=== PATIENT | female | born 1970 | race African-American/Black ===

== ENCOUNTER 2020-09-28 09:44 | Observation (INO) ==
[2020-09-28 10:11] LABS: Basophils # 0.1 10*3/uL (0.0-0.2); Basophils % 1.7 % (0.0-0.8); Eosinophils # 0.1 10*3/uL (0.0-0.87); Eosinophils % 2.7 % (0.00-10.9); Hematocrit 39.2 VOL% (35.7-47.0); Hemoglobin 13.5 GM/DL (12.0-16.0); Immature Granulocytes % 0.3 %; Immature Granulocytes Absolute 0.01 #; Lymphocytes # 0.8 10*3/uL (1.4-4.0); Lymphocytes % 25.7 % (21.3-54.2); Mean Corpuscular HGB Conc 34.4 GM/DL (32-36); Mean Corpuscular Volume 90.1 FL (87-102); Mean Platelet Volume 9.2 FL (9.6-12.0); Monocytes % 6.8 % (1.7-12.7); Neutrophils % 62.8 % (38.7-73.9); Platelet Count 356 T/CUMM (130-400); Red Blood Count 4.35 MC/CUMM (3.8-5.5); Red Cell Distribution Width 11.8 % (9.3-17.3); White Blood Count 2.9 T/CUMM (4-12)
[2020-09-28 10:36] LABS: Eosinophils 9 % (0-10); Hypochromasia 1+; Lymphocytes 23 % (20-55); Microcytosis 1+; Platelet Estimate Adequate; Segmented Neutrophils 60 % (50-85); Total Cells Counted 100
[2020-09-28 10:46] LABS: Albumin 4.4 G/DL (3.4-5.0); Bilirubin,Total 0.4 MG/DL (0.2-1.0); Calcium 9.3 MG/DL (8.5-10.1); Osmolality,Calculated 274.5 MOS/KG (273-304); Potassium 3.8 MMOL/L (3.5-5.1); Total Protein 8.1 G/DL (6.4-8.2)
[2020-09-28] MEDS ORDERED: ASPIRIN 325 MG TABLET PO STA (11:02)
[2020-09-28 11:24] LABS: Risk Ratio 2.9; VLDL CHOLESTEROL 12.4 MG/DL
[2020-09-28] MEDS ORDERED: POTASSIUM CHLORIDE RIDER 10 MEQ in PREMIX 1 EACH IV PRN (12:07)
[2020-09-28] MEDS ORDERED: DIAZEPAM 5 MG TABLET PO ONE (12:07)
[2020-09-28] MEDS ORDERED: MAGNESIUM SULF RIDER 2 GM/50 ML PREMIX IV PRN (12:07)
[2020-09-28] MEDS ORDERED: diphenhydrAMINE CAP 25 MG CAPSULE PO ONE (12:07)
[2020-09-28] MEDS ORDERED: LIDOCAINE 1% 20 ML VIAL ONE (12:14)
[2020-09-28] MEDS ORDERED: HEPARIN/NACL 0.9% 2 UNITS/ML 2,000 UNIT/1,000 ML BAG IV ONE (12:14)
[2020-09-28] MEDS ORDERED: ONDANSETRON 4 MG/2 ML VIAL IV PRN (12:28)
[2020-09-28] MEDS ORDERED: MORPHINE 4 MG/1 ML VIAL IV PRN (12:28)
[2020-09-28] MEDS ORDERED: ACETAMINOPHEN 325 MG TABLET PO PRN (12:28)
[2020-09-28] MEDS ORDERED: MIDAZOLAM 2 MG/2 ML VIAL ONE (12:35)
[2020-09-28] MEDS ORDERED: HYDROmorphone 2 MG/1 ML VIAL ONE (12:35)
[2020-09-28] MEDS ORDERED: diphenhydrAMINE 50 MG/1 ML VIAL ONE (12:50)
[2020-09-28] MEDS ORDERED: DEXTROSE 50% 25 GM/50 ML VIAL IV PRN (13:16)
[2020-09-28] MEDS ORDERED: ZALEPLON 5 MG CAPSULE PO PRN (13:16)
[2020-09-28] MEDS ORDERED: GLUCAGON 1 MG VIAL IM PRN (13:16)
[2020-09-28] MEDS: SODIUM CHLORIDE 0.9% 1,000 ML IV SCH ×2 (13:40→21:50)
[2020-09-28] MEDS: TERBINAFINE 250 MG TABLET PO SCH (15:35)
[2020-09-28] MEDS: carvediloL 6.25 MG TABLET PO SCH (21:55)
[2020-09-29] MEDS: SODIUM CHLORIDE 0.9% 1,000 ML IV SCH (05:26)
[2020-09-29 05:58] LABS: Eosinophils # 0.1 10*3/uL (0.0-0.87); Eosinophils % 2.1 % (0.00-10.9); Hematocrit 35.2 VOL% (35.7-47.0); Hemoglobin 11.7 GM/DL (12.0-16.0); Immature Granulocytes % 0.5 %; Immature Granulocytes Absolute 0.02 #; Lymphocytes # 0.9 10*3/uL (1.4-4.0); Lymphocytes % 22.9 % (21.3-54.2); Mean Corpuscular HGB Conc 33.2 GM/DL (32-36); Mean Corpuscular Volume 93.4 FL (87-102); Mean Platelet Volume 9.6 FL (9.6-12.0); Monocytes % 7.5 % (1.7-12.7); Platelet Count 299 T/CUMM (130-400); Red Blood Count 3.77 MC/CUMM (3.8-5.5); White Blood Count 3.9 T/CUMM (4-12)
[2020-09-29 06:15] LABS: Calcium 8.4 MG/DL (8.5-10.1); Osmolality,Calculated 279.3 MOS/KG (273-304); Potassium 3.3 MMOL/L (3.5-5.1)
[2020-09-29] MEDS ORDERED: POTASSIUM CHLORIDE 20 MEQ TABLET PO ONE (07:35)
[2020-09-29 08:15] VITALS: BP 111/71
[2020-09-29] MEDS: TERBINAFINE 250 MG TABLET PO SCH (08:44)
[2020-09-29] MEDS: carvediloL 6.25 MG TABLET PO SCH (08:45)
[2020-09-29] MEDS ORDERED: amLODIPine 10 MG TABLET PO SCH (09:00)
[2020-09-29] MEDS ORDERED: PANTOPRAZOLE 40 MG TABLET PO SCH (09:00)
[2020-09-29] MEDS ORDERED: SIMVASTATIN 20 MG TABLET PO SCH (09:00)
== END 2020-09-29 10:40 | disposition home or self-care (01) ==
LOC: N.EDINP 09:44 → N.ED 09:44 → N.EDINP 12:25 → N.TELEN 13:40
PROVIDERS: ADMIT Internal Medicine Cardiovascular Disease; ATTEND Internal Medicine Cardiovascular Disease
PROC: CLCCHCL (ICD-10-PCS; 2020-09-28 13:15)